=== PATIENT | male | born 1940 | race Caucasian/White ===

== ENCOUNTER 2017-06-08 14:02 | Emergency (ER) | payer MEDICARE ==
[2017-06-08 14:37] VITALS: BP 144/67
[2017-06-08] MEDS ORDERED: ACETAMINOPHEN 325 MG TABLET PO ONE (15:39)
--- NOTE | 2017-06-08 15:44 | ER Document Report ---
ED Medical Screen (RME) - General Chief Complaint: Chest Pain Stated Complaint: CHEST PAIN Time Seen by Provider: 06/08/17 15:33 Notes: This 77-year-old male patient reports onset this morning right-sided chest pain he did develop back pain, chills severe leg weakness. He reports having pain behind the knees and he is quite antsy and cannot sit still. He is also hurting in the back but not as bad as behind his knees. He did get a flu shot this year. He has not really had a cough at this point. 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 He has radiation seed implants for prostate cancer in the past. He is immunosuppressed taking Enbrel for his rheumatoid arthritis. He reports falling and striking his head on 05/12/2017. He had subsequently had a CT scan done Holter monitor and echo. He has not taken anything for his fever yet today. I have greeted and performed a rapid initial assessment of this patient. A comprehensive ED assessment and evaluation of the patient, analysis of test results and completion of the medical decision making process will be conducted by additional ED providers. TRAVEL OUTSIDE OF THE [place] IN LAST 30 DAYS: No - Related Data Allergies/Adverse Reactions: No Known Allergies Allergy (Unverified 09/26/13 14:30) Past Medical History - Social History Chew tobacco use (# tins/day): No Frequency of alcohol use: None Drug Abuse: None - Past Medical History Cardiac Medical History: Denies: Hx Heart Attack, Hx Hypertension Pulmonary Medical History: Denies: Hx Asthma Neurological Medical History: Denies: Hx Cerebrovascular Accident, Hx Seizures Renal/ Medical History: Denies: Hx Peritoneal Dialysis GI Medical History: Denies: Hx Hepatitis, Hx Hiatal Hernia, Hx Ulcer Musculoskeltal Medical History: Reports Hx Arthritis - RA Infectious Medical History: Denies: Hx Hepatitis Past Surgical History: Reports: Hx Orthopedic Surgery - bilateral knee, shoulder , hip. Denies: Hx Open Heart Surgery, Hx Pacemaker Physical Exam - Vital signs Vitals: Temp Pulse Resp BP Pulse Ox 100.5 F H 116 H 16 144/67 H 98 06/08/17 14:35 06/08/17 14:35 06/08/17 14:35 06/08/17 14:35 06/08/17 14:35 Course - Vital Signs Vital signs: Temp Pulse Resp BP Pulse Ox 100.5 F H 116 H 16 144/67 H 98 06/08/17 14:35 06/08/17 14:35 06/08/17 14:35 06/08/17 14:35 06/08/17 14:35
--- NOTE | 2017-06-08 16:22 | RADIOLOGY REPORT (SQ) ---
EXAM DESCRIPTION: CHEST SINGLE VIEW COMPLETED DATE/TIME: 06/08/2017 4:06 pm REASON FOR STUDY: Fever, unable to sit still COMPARISON: 02/06/2011. EXAM PARAMETERS: NUMBER OF VIEWS: One view. TECHNIQUE: Single frontal radiographic view of the chest acquired. RADIATION DOSE: NA LIMITATIONS: None. FINDINGS: LUNGS AND PLEURA: No opacities, masses or pneumothorax. No pleural effusion. MEDIASTINUM AND HILAR STRUCTURES: No masses. Contour normal. HEART AND VASCULAR STRUCTURES: Heart normal in size. Normal vasculature. BONES: No acute findings. Old rib fractures. HARDWARE: Right shoulder prosthesis. OTHER: No other significant finding. IMPRESSION: NO ACUTE RADIOGRAPHIC FINDING IN THE CHEST. TECHNICAL DOCUMENTATION: JOB ID: [id number] [employer]- All Rights Reserved
--- NOTE | 2017-06-08 16:40 | ER Document Report ---
ED General - General Chief Complaint: Chest Pain Stated Complaint: CHEST PAIN Time Seen by Provider: 06/08/17 15:33 Notes: 77-year-old male on Enbrel for rheumatoid arthritis presents with severe pain in his chest and upper back, radiating to the back of his knees which began earlier today lasted several hours and is now gone after receiving Tylenol in the ED. Denies diffuse muscle aches or fevers, but felt like he might of had a fever at home. Seen in triage and given Tylenol. Labs have been ordered. He denies cough or shortness of breath. Denies urinary symptoms. TRAVEL OUTSIDE OF THE [place] IN LAST 30 DAYS: No - Related Data Allergies/Adverse Reactions: No Known Allergies Allergy (Unverified 09/26/13 14:30) Past Medical History - Social History Smoking Status: Never Smoker Chew tobacco use (# tins/day): No Frequency of alcohol use: None Drug Abuse: None Family History: None Patient has suicidal ideation: No Patient has homicidal ideation: No - Past Medical History Cardiac Medical History: Denies: Hx Heart Attack, Hx Hypertension Pulmonary Medical History: Denies: Hx Asthma Neurological Medical History: Denies: Hx Cerebrovascular Accident, Hx Seizures Renal/ Medical History: Denies: Hx Peritoneal Dialysis GI Medical History: Denies: Hx Hepatitis, Hx Hiatal Hernia, Hx Ulcer Musculoskeltal Medical History: Reports Hx Arthritis - RA Infectious Medical History: Denies: Hx Hepatitis Past Surgical History: Reports: Hx Orthopedic Surgery - bilateral knee, shoulder , hip. Denies: Hx Open Heart Surgery, Hx Pacemaker Review of Systems - Review of Systems Notes: REVIEW OF SYSTEMS GEN: Denies fever, chills, weight loss ENT: Denies sore throat, nasal discharge, ear pain EYES: Denies blurry vision, eye pain, discharge CV: Chest pain a RESP: Denies cough, shortness of breath, wheezing GI: Denies abdominal pain, nausea, vomiting, diarrhea MSK: Back pain, pain behind the knees SKIN: Denies rash, skin lesions LYMPH: Denies swollen glands/lymph nodes NEURO: Denies headache, focal weakness or numbness, dizziness PSYCH: Denies depression, suicidal or homicidal ideation PHYSICAL EXAMINATION General: No acute distress, well-nourished Head: Atraumatic, normocephalic ENT: Mouth normal, oropharynx moist, no exudates or tonsillar enlargement Eyes: Conjunctiva normal, pupils equal, lids normal Neck: No JVD, supple, no guarding CVS: Normal rate, regular rhythm, no murmurs Resp: No resp distress, equal and normal breath sounds bilaterally GI: Nondistended, soft, no tenderness to palpation, no rebound or guarding Ext: No deformities, no edema, normal range of motion in upper and lower ext. No popliteal masses. Back: No CVA or midline TTP Skin: No rash, warm Lymphatic: No lymphadeopathy noted Neuro: Awake, alert. Face symmetric. GCS 15. Physical Exam - Vital signs Vitals: Temp Pulse Resp BP Pulse Ox 100.5 F H 116 H 16 144/67 H 98 06/08/17 14:35 06/08/17 14:35 06/08/17 14:35 06/08/17 14:35 06/08/17 14:35 Course - Re-evaluation Re-evalutation: 06/08/17 16:39 Immunosuppressed 77-year-old male presents with pain in the chest back and back of knees. This could be diffuse myalgias from the flu or other source of sepsis given that he has a fever. He was seen in triage and a septic workup was added. Also troponin is pending. His EKG does not show ischemic change. - Vital Signs Vital signs: Temp Pulse Resp BP Pulse Ox 101 F H 116 H 16 144/67 H 98 06/08/17 17:33 06/08/17 14:35 06/08/17 14:35 06/08/17 14:35 06/08/17 14:35 06/08/17 18:34 Patient presents with pain which began in his chest and back and radiated to the back of his legs that is now resolved after a single dose of Tylenol. He has a low-grade temperature. Does not have hypoxia or focal lung findings. His physical exam is in fact quite normal. His differential includes myalgias body aches from the flu, less likely acute coronary syndrome given the pattern of the pain. I would expect aortic dissectiontype pain to not be relieved with acetaminophen. The patient is normotensive and has good pulses throughout. He appears quite comfortable. Plan: Flu swab labs troponin chest x-ray to rule out pneumonia. Patient was reassessed at 6:30 PM. He feels perfectly fine. His troponin chest x-ray and the rest of his labs including flu are negative. I discussed that he may be having a viral type illness. He has no urinary symptoms to suggest UTI. He will be discharged home, continue ibuprofen and Tylenol, and follow-up with his regular doctor in 12 days. I have discussed with the patient there likely diagnosis, aftercare plan, follow-up plans and my usual and customary return precautions. They verbalized understanding of this. - Laboratory Result Diagrams: 06/08/17 17:16 06/08/17 17:16 Laboratory results interpreted by me: 06/08/17 06/08/17 06/08/17 17:16 17:16 17:36 RBC 3.81 L Hgb 12.0 L Hct 35.8 L Seg Neuts % (Manual) 87 H Lymphocytes % (Manual) 4 L Abs Lymphs (Manual) 0.2 L Total Protein 6.0 L Urine Ketones 20 H - Diagnostic Test Radiology reviewed: Image reviewed, Reports reviewed - EKG Interpretation by Me EKG shows normal: Sinus rhythm Rate: Normal, Tachycardia When compared to previous EKG there are: Previous EKG unavailable - No ST or T- wave changes Discharge - Discharge Clinical Impression: Chest pain in adult Condition: Good Disposition: HOME, SELF-CARE Instructions: Chest Wall Pain ([facility]) Additional Instructions: We did not find a serious cause of your chest pain. Her x-ray did not show pneumonia and all of your laboratory testing were normal. You do have a low- grade temperature which could be from a virus but it is not from the flu. Please follow-up with your regular doctor in 2 days. Referrals: LORETTA PARRA MD [Primary Care Provider] - Follow up tomorrow
[2017-06-08 17:49] LABS: HEMATOCRIT 35.8 % (37.9-51.0); MEAN CORPUSCULAR HEMOGLOBIN 31.6 pg (27.0-33.4); MEAN CORPUSCULAR HGB CONC 33.6 g/dL (32.0-36.0); MEAN CORPUSCULAR VOLUME 94 fl (80-97); PLATELET COUNT 160 10^3/uL (150-450); RED BLOOD COUNT 3.81 10^6/uL (4.35-5.55); WHITE BLOOD COUNT 5.1 10^3/uL (4.0-10.5)
[2017-06-08 17:57] LABS: APPEARANCE,URINE SLIGHTLY-CLOUDY; BILIRUBIN,URINE NEGATIVE (NEGATIVE); COLOR,URINE YELLOW; GLUCOSE, URINE NEGATIVE (NEGATIVE); KETONES,URINE 20 mg/dL (NEGATIVE); LEUKOCYTE ESTERASE,URINE NEGATIVE (NEGATIVE); NITRITE,URINE NEGATIVE (NEGATIVE); PROTEIN,URINE NEGATIVE (NEGATIVE); URINE SPECIFIC GRAVITY 1.019; UROBILINOGEN,URINE NEGATIVE mg/dL (<2.0)
[2017-06-08 18:00] LABS: A TYPE INFLUENZA AG NEGATIVE (NEGATIVE); B INFLUENZA AG NEGATIVE (NEGATIVE)
[2017-06-08 18:02] LABS: ALANINE AMINOTRANSFERASE 34 U/L (21-72); ALBUMIN 3.8 g/dL (3.5-5.0); ALKALINE PHOSPHATASE 63 U/L (38-126); ANION GAP 11 (5-19); ASPARTATE AMINO TRANSFERASE 33 U/L (17-59); BILIRUBIN,DIRECT 0.4 mg/dL (0.0-0.4); BILIRUBIN,TOTAL 0.5 mg/dL (0.2-1.3); BLOOD UREA NITROGEN 19 mg/dL (7-20); CARBON DIOXIDE 25 mmol/L (22-30); CHLORIDE 102 mmol/L (98-107); CREATINE KINASE 114 U/L (55-170); GLUCOSE 92 mg/dL (75-110); SODIUM 137.6 mmol/L (137-145)
[2017-06-08 18:13] LABS: ABSOLUTE LYMPHOCYTES# (MANUAL) 0.2 10^3/uL (0.5-4.7); ABSOLUTE MONOCYTES # (MANUAL) 0.5 10^3/uL (0.1-1.4); ABSOLUTE NEUTROPHILS# (MANUAL) 4.4 10^3/uL (1.7-8.2); BASOPHILS % (MANUAL) 0 % (0-2); CREATINE KINASE MB 2.25 ng/mL (<4.55); EOSINOPHILS % (MANUAL) 0 % (0-6); LYMPHOCYTES % (MANUAL) 4 % (13-45); MONOCYTES % (MANUAL) 9 % (3-13); SEGMENTED NEUTROPHILS % (MAN) 87 % (42-78); TOTAL CELLS COUNTED 100
[2017-06-08 18:14] LABS: ANISOCYTOSIS SLIGHT; PLATELET COMMENT ADEQUATE; POIKILOCYTOSIS SLIGHT; TEAR DROP CELLS SLIGHT; TROPONIN I < 0.012 ng/mL
[2017-06-08 18:15] LABS: TOXIC VACUOLATION PRESENT
--- NOTE | 2017-06-09 10:33 | EKG REPORT ---
SEVERITY:- ABNORMAL ECG - SINUS TACHYCARDIA LEFT ANTERIOR FASCICULAR BLOCK NONSPECIFIC T ABNORMALITIES, LATERAL LEADS : Confirmed by: Vincent Singleton 09-Jun-2017 10:32:55
== END 2017-06-08 18:51 | disposition home or self-care (01) ==
LOC: ER 14:02
DX: R07.9 Chest pain, unspecified (principal); M06.9 Rheumatoid arthritis, unspecified
CPT/HCPCS: 93005; 99285; 36415; 87040; 82553; 82550; 85025; 80053; 81001; 84484; 83605; 87804; 71045; 93010; A9270